=== PATIENT | female | born 1960 | race Caucasian/White ===

== ENCOUNTER 2019-02-15 04:20 | Emergency (ER) | payer OTHER ==
[~2019-02-15] VITALS: Ht 147.3 cm; Wt 57.0 kg
[2019-02-15 04:21] VITALS: Ht 147.3 cm; Wt 57.0 kg
[2019-02-15] MEDS ORDERED: LACTATED RINGER'S 1,000 ML IV STA (04:26)
[2019-02-15] MEDS ORDERED: ONDANSETRON 4 MG INJ IV STA (04:26)
--- NOTE | 2019-02-15 04:37 | ERD ---
ER Documentation Chief Complaint Chief Complaint PT fell walking to restroom c/o L side weakness hx stroke HPI 58-year-old woman brought in by EMS for syncopal episode this evening after walking back from the bathroom. 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 She denies recent fevers or chills, no chest pain or shortness of breath. She was initially nauseous and retching but denies vomiting or diarrhea. Patient was transported here by EMS without further complications ROS All systems reviewed and are negative except as per history of present illness. Allergies Allergies: Coded Allergies: No Known Allergy (Unverified , 02/15/19) PMhx/Soc Hypertension, history of stroke with left upper extremity paresis FmHx Family History: No diabetes Physical Exam Vitals Vital Signs Date Temp Pulse Resp B/P (MAP) Pulse Ox O2 O2 Flow FiO2 Time Delivery Rate 02/15/19 94 21 184/85 99 Room Air 05:09 (118) 02/15/19 98.1 96 30 186/84 99 04:21 (118) Physical Exam Const: Well-developed will nourished woman, nauseous, afebrile HEENT: Moist mucous membranes, no cervical spine tenderness or step- off deformity Resp: Clear to auscultation bilaterally Cardio: Regular rate and rhythm, no murmurs Skin: No petechiae or rashes, no hematomas, abrasions, lacerations Back: No midline or flank tenderness no thoracic or lumbar spine deformity Ext: No cyanosis, or edema, calves symmetrical, distal pulses equal bilateral Neur: Awake and alert x3, left upper extremity paresis, gait normal, pupils e qual round reactive to light, answering questions and following commands without difficulty Psych: Normal Mood and Affect Result Diagram: 02/15/19 0422 02/15/19 0422 Results 24 hrs Laboratory Tests Test 02/15/19 04:22 02/15/19 04:23 White Blood Count 13.4 10^3/ul Red Blood Count 4.35 10^6/ul Hemoglobin 12.4 g/dl Hematocrit 36.5 % Mean Corpuscular Volume 83.9 fl Mean Corpuscular Hemoglobin 28.5 pg Mean Corpuscular Hemoglobin Concent 34.0 g/dl Red Cell Distribution Width 13.0 % Platelet Count 459 10^3/UL Mean Platelet Volume 9.7 fl Immature Granulocytes % 0.600 % Neutrophils % 87.8 % Lymphocytes % 7.4 % Monocytes % 3.9 % Eosinophils % 0.1 % Basophils % 0.2 % Nucleated Red Blood Cells % 0.0 /100WBC Immature Granulocytes # 0.080 10^3/ul Neutrophils # 11.7 10^3/ul Lymphocytes # 1.0 10^3/ul Monocytes # 0.5 10^3/ul Eosinophils # 0.0 10^3/ul Basophils # 0.0 10^3/ul Nucleated Red Blood Cells # 0.0 10^3/ul Sodium Level 141 mmol/L Potassium Level 4.1 mmol/L Chloride Level 100 mmol/L Carbon Dioxide Level 24 mmol/L Anion Gap 17 Blood Urea Nitrogen 29 mg/dl Creatinine 1.21 mg/dl Est Glomerular Filtrat Rate mL/min 45 mL/min Glucose Level 269 mg/dl Calcium Level 9.7 mg/dl Total Bilirubin 0.3 mg/dl Direct Bilirubin 0.00 mg/dl Indirect Bilirubin 0.3 mg/dl Aspartate Amino Transf (AST/SGOT) 25 IU/L Alanine Aminotransferase (ALT/SGPT) 21 IU/L Alkaline Phosphatase 125 IU/L Troponin I < 0.012 ng/ml Total Protein 8.7 g/dl Albumin 4.7 g/dl Globulin 4.00 g/dl Albumin/Globulin Ratio 1.17 Lipase 149 U/L Bedside Glucose 255 mg/dL Current Medications Medications Dose Sig/Nadia Start Time Status Last (Trade) Ordered Route PRN Stop Time Admin Dose Reason Admin Lactated 1,000 ml @ Q1H STAT 02/15/19 DC 02/15/19 Ringer's 1,000 mls/hr IV 04:26 04:33 02/15/19 05:25 Ondansetron 4 mg ONCE STAT 02/15/19 DC 02/15/19 HCl (Zofran IV 04:26 04:33 Inj) 02/15/19 04:28 Procedures/MDM IV line was established patient was placed on youth nutritional monitor rhythm strip revealed a sinus rhythm at about 80 bpm with upright P and T waves. Patient was afebrile EKG performed, read by me: Normal sinus rhythm at 95 bpm, left axis deviation, left bundle branch block, prolonged QT of 532 ms, no concerning ST elevations or depressions noted I administered 1 L LR IV x1, Zofran [address] scan of the brain was negative for acute bleed mass or shift. CBC was unremarkable, electrolytes revealed dehydration with a BUN/creatinine of 29/1.2, liver function tests were normal, troponin was negative UA is pending I will follow-up I spoke to [facility] physician regarding the patient's presentation and sym ptomatology agreed to transfer the patient to [place], authorization #[id number] Departure Diagnosis: Primary Impression: Syncope Syncope type: unspecified Qualified Codes: R55 - Syncope and collapse Additional Impressions: Prolonged QT syndrome Acute dehydration Condition: SCARLET Mayo MD Feb 15, 2019 04:37
[2019-02-15] MEDS ORDERED: MAGNESIUM SULFATE 2 GM/50 ML 50 ML IVPB ONE (06:00)
[2019-02-15 06:48] VITALS: BP 178/89; PULSE 92; RESP 17
== END 2019-02-15 07:10 | disposition short-term general hospital (02) ==
LOC: E/R 04:20
DX: R55 Syncope and collapse (principal); I45.81 Long QT syndrome; E86.0 Dehydration; Z86.73 Personal history of transient ischemic attack (TIA), and cerebral infarction without residual deficits
CPT/HCPCS: 36415; 70450; 80053; 81001; 82962; 83690; 84484; 85025; 93005; 96374; 96375; 99285; J2405; J3475; J7120